=== PATIENT | male | born 1995 | race Caucasian/White ===

== ENCOUNTER 2019-03-01 10:08 | Emergency (ER) | payer OTHER, BC ==
[~2019-03-01] VITALS: Ht 177.8 cm; Wt 84.1 kg
[2019-03-01] MEDS ORDERED: NS 500 ML IV ONE (11:15)
[2019-03-01 11:46] LABS: BASO % 0.3 % (0.0-1.0); EOS # 0.1 10^3/uL (0.0-0.5); HEMATOCRIT 45.6 % (42.0-52.0); HEMOGLOBIN 15.5 g/dl (13.5-17.5); LYMPH # 2.3 10^3/uL (1.5-5.0); LYMPH % 37.9 % (24.0-44.0); MEAN CORPUSCULAR HEMOGLOBIN 30.7 pg (27.0-33.0); MEAN CORPUSCULAR VOLUME 90.3 fl (80.0-96.0); MONO # 0.7 10^3/uL (0.0-0.8); MONO % 11.2 % (0.0-5.0); NEUTROPHILS # 2.9 10^3/uL (1.5-8.5); NEUTROPHILS % 48.4 % (36.0-66.0); PLATELET COUNT, AUTOMATED 220 10^3/uL (150-450); RED BLOOD COUNT 5.05 10^6/uL (4.30-6.10); WHITE BLOOD COUNT 6.1 10^3/uL (4.0-10.0)
[2019-03-01] MEDS ORDERED: ISOVUE-370 76% 100ML VIAL (Q9967) As Ordered ONE (11:46)
--- NOTE | 2019-03-01 12:15 | REP ---
CT face: 03/01/2019. Indication: Right facial/. Parotid regions swelling. Comparison: None. Technique: Axial images of the face were performed following IV administration of 75 ccs of Isovue 370. Sagittal and coronal reconstructions were provided. Findings: Multi lobular areas of slightly prominent contrast enhancement are present within the right parotid gland with minimal adjacent adipose stranding. There is no ductal dilatation. No fluid collection is present to suggest abscess. Periosteal mucosal thickening is present within the left maxillary sinus. Right maxillary retention cyst is noted. There is no acute facial bone fracture, subluxation or dislocation. The mastoid air cells are clear. Impression: Multiple somewhat lobulated areas of abnormal enhancement within the right parotid gland. Considerations include parotitis, enlarged lymph nodes as well as parotid neoplasm. Clinical correlation is required. Tissue sampling may be warranted. Electronically Signed by Basil Hammer DO 03/01/2019 12:06 P
[2019-03-01 12:31] LABS: ERYTHROCYTE SEDIMENTATION RATE 2 mm/hr (0-15)
[2019-03-01] MEDS ORDERED: KEFL500C17 PO (13:07)
[2019-03-01] MEDS ORDERED: PRED20TA PO (13:07)
[2019-03-01 13:16] VITALS: BP 133/75
== END 2019-03-01 13:17 | disposition home or self-care (01) ==
LOC: M ED 10:08
DX: K11.20 Sialoadenitis, unspecified (principal); J06.9 Acute upper respiratory infection, unspecified; B34.9 Viral infection, unspecified
CPT/HCPCS: 70487; 80047; 85025; 85652; 86140; 96360; 99284; Q9967